=== PATIENT | male | born 1975 | race Two or more races ===

== ENCOUNTER 2017-05-16 14:32 | Emergency (ER) | payer SELFPAY ==
[~2017-05-16] VITALS: Ht 167.6 cm; Wt 81.6 kg
[2017-05-16 14:38] VITALS: BP 123/78
[2017-05-16] MEDS ORDERED: methylPREDNISolone SOD SUCC 125 MG/2 ML VL IM ONE (16:30)
[2017-05-16] MEDS ORDERED: EPINEPHrine HCL 1 MG/1 ML AMP SC ONE (16:30)
== END 2017-05-16 16:42 | disposition left against medical advice (07) ==
LOC: ER 14:40
DX: T78.40XA Allergy, unspecified, initial encounter (principal)
CPT/HCPCS: 99281; J0171; J2930